=== PATIENT | female | born 1965 | race Caucasian/White ===

== ENCOUNTER 2019-07-24 16:06 | Inpatient (IN) | payer MEDICAID ==
[~2019-07-24] VITALS: Ht 167.6 cm; Wt 60.8 kg
[2019-07-24] MEDS ORDERED: BUPR100SR PO (16:17)
[2019-07-24] MEDS ORDERED: METO25 PO (16:17)
[2019-07-24] MEDS ORDERED: LEVO25TA9 PO (16:17)
[2019-07-24] MEDS ORDERED: LORazepam 2 MG/ML VIAL ONE (16:27)
[2019-07-24] MEDS ORDERED: HALOPERIDOL LACTATE 5 MG/ML VIAL ONE (16:27)
[2019-07-24] MEDS ORDERED: DiphenhydrAMINE HCL 50 MG/ML VIAL ONE (16:27)
[2019-07-24] MEDS ORDERED: DiphenhydrAMINE HCL 50 MG/ML VIAL IM ONE (16:30)
[2019-07-24] MEDS ORDERED: HALOPERIDOL LACTATE 5 MG/ML VIAL IM ONE (16:30)
[2019-07-24] MEDS ORDERED: LORazepam 2 MG/ML VIAL IM ONE (16:30)
[2019-07-24 18:12] LABS: EOSINOPHILS % (AUTO) 0.9 % (1.0-6.0); HEMATOCRIT 42.1 % (36-46); HEMOGLOBIN 13.9 g/dL (12.0-16.0); LYMPHOCYTES # (AUTO) 2.1 K/uL (1.0-4.8); LYMPHOCYTES % (AUTO) 26.7 % (22.0-44.0); MEAN CORPUSCULAR HEMOGLOBIN 29.6 pg (26.0-34.0); MEAN CORPUSCULAR VOLUME 90 fL (80-100); MONOCYTES # (AUTO) 0.4 K/uL (0.1-1.0); MONOCYTES % (AUTO) 5.4 % (2.0-9.0); NEUTROPHILS # (AUTO) 5.3 K/uL (1.8-7.7); PLATELET COUNT (AUTO) 271 K/uL (150-450)
[2019-07-24 18:21] LABS: ANION GAP 8 mmol/L (8-16); CALCIUM, TOTAL 8.6 mg/dL (8.8-10.5); CARBON DIOXIDE 31 mmol/L (22-29); CHLORIDE 105 mmol/L (98-107); CREATININE 1.01 mg/dL (0.60-1.30); GLOMERULAR FILTR. RATE CALC 58 mL/min (>60); GLUCOSE,RANDOM 85 mg/dL (70-110); POTASSIUM 3.9 mmol/L (3.5-5.1); SODIUM SERUM 144 mmol/L (136-145); UREA NITROGEN, BLOOD 13 mg/dL (7-18)
[2019-07-24 18:26] LABS: ALANINE AMINOTRANSFERASE 67 U/L (12-78); ALBUMIN 3.6 g/dL (3.4-5.0); ALKALINE PHOSPHATASE 84 U/L (46-116); ASPARTATE AMINOTRANSFERASE 53 U/L (15-37); BILIRUBIN,TOTAL 0.2 mg/dL (0.1-1.0); TOTAL PROTEIN, SERUM 6.9 g/dL (6.4-8.2)
[2019-07-24 18:41] LABS: LITHIUM < 0.20 mmol/L (0.60-1.20)
[2019-07-24] MEDS ORDERED: HALOPERIDOL 5 MG TABLET PO PRN (20:45)
[2019-07-25] VITALS (8 sets, daily range): BP systolic 128–147; BP diastolic 84–92
[2019-07-25] MEDS: ZOLPIDEM TARTRATE 10 MG TABLET PO PRN ×2 (01:40→21:24)
[2019-07-25] MEDS: LORazepam 2 MG TABLET PO PRN ×2 (01:40→17:58)
[2019-07-25] MEDS ORDERED: INFLUENZA VIRUS VACCINE QVS 2019-20 (3YR+)/PF 60 MCG/0.5 ML SYRINGE IM ONE (03:00)
[2019-07-25] MEDS ORDERED: PNEUMOCOCCAL VACCINE POLYVALENT 0.5 ML VIAL [PPSV23] IM ONE (03:00)
[2019-07-25 08:20] LABS: CHOL/HDL RATIO 3.7 (3.9-5.7)
[2019-07-25] MEDS: BuPROPion HCL 150 MG SR TABLET PO SCH (12:46)
[2019-07-25] MEDS ORDERED: IBUPROFEN 400 MG TABLET PO PRN (15:30)
[2019-07-25] MEDS ORDERED: LOPERAMIDE HCL 2 MG CAPSULE PO PRN (15:30)
[2019-07-25] MEDS ORDERED: MAGNESIUM HYDROXIDE SUSPENSION 30 ML UDCUP PO PRN (15:30)
[2019-07-25] MEDS ORDERED: PETROLATUM,WHITE 28 GM JELLY TP PRN (15:30)
[2019-07-25] MEDS ORDERED: ACETAMINOPHEN 325 MG TABLET PO PRN (15:30)
[2019-07-25] MEDS ORDERED: CloNIDine HCL 0.1 MG TABLET PO PRN (15:30)
[2019-07-25] MEDS ORDERED: MAG HYDROX/AL HYDROX/SIMETH ES 30 ML SUSPENSION UDCUP PO PRN (15:30)
[2019-07-25] MEDS ORDERED: GuaiFENesin/D-METHORPHAN [SUGAR-FREE] 200-20MG/10 ML SYRUP UDCUP PO PRN (15:30)
[2019-07-25] MEDS ORDERED: ONDANSETRON HCL 4 MG TABLET PO PRN (15:30)
[2019-07-25] MEDS ORDERED: ALBUTEROL SULFATE HFA 90 MCG/PUFF 8 GM INHALER IH PRN (15:30)
[2019-07-25] MEDS ORDERED: NICOTINE 14 MG/24 HOUR PATCH TD PRN (15:30)
[2019-07-25] MEDS ORDERED: DOCUSATE SODIUM 100 MG CAPSULE PO PRN (15:30)
[2019-07-26] MEDS: LEVOTHYROXINE SODIUM 25 MCG TABLET PO SCH (06:30)
[2019-07-26 06:49] VITALS: BP 136/87
[2019-07-26 06:51] VITALS: BP 136/87
[2019-07-26 08:12] VITALS: BP 124/92
[2019-07-26] MEDS: AmLODIPine BESYLATE 5 MG TABLET PO SCH (08:16)
[2019-07-26] MEDS: BuPROPion HCL 150 MG SR TABLET PO SCH (08:16)
[2019-07-26] MEDS: LORazepam 2 MG TABLET PO PRN ×2 (08:16→15:46)
[2019-07-26] MEDS: METOPROLOL TARTRATE 25 MG TABLET PO SCH (08:17)
[2019-07-26 09:50] VITALS: BP 124/92
[2019-07-26 16:10] VITALS: BP 134/95
[2019-07-26 16:20] VITALS: BP 134/95
[2019-07-26] MEDS: ZOLPIDEM TARTRATE 10 MG TABLET PO PRN (20:41)
[2019-07-27 02:28] VITALS: BP 131/81
[2019-07-27 02:30] VITALS: BP 131/81
[2019-07-27] MEDS: LEVOTHYROXINE SODIUM 25 MCG TABLET PO SCH (06:32)
[2019-07-27] MEDS: LORazepam 2 MG TABLET PO PRN ×3 (07:07→16:26)
[2019-07-27 08:19] VITALS: BP 124/95
[2019-07-27] MEDS: AmLODIPine BESYLATE 5 MG TABLET PO SCH (08:30)
[2019-07-27] MEDS: METOPROLOL TARTRATE 25 MG TABLET PO SCH (08:30)
[2019-07-27] MEDS: BuPROPion HCL 150 MG SR TABLET PO SCH (08:30)
[2019-07-27] MEDS: OMEGA-3/DHA/EPA/FISH OIL 1,000 MG CAPSULE PO SCH (14:42)
[2019-07-27 16:16] VITALS: BP 129/76
[2019-07-27 16:19] VITALS: BP 129/76
[2019-07-27] MEDS: ZOLPIDEM TARTRATE 10 MG TABLET PO PRN (20:58)
[2019-07-28 06:39] VITALS: BP 114/93
[2019-07-28] MEDS: LEVOTHYROXINE SODIUM 25 MCG TABLET PO SCH (07:06)
[2019-07-28 08:22] VITALS: BP 135/86
[2019-07-28] MEDS: OMEGA-3/DHA/EPA/FISH OIL 1,000 MG CAPSULE PO SCH (08:23)
[2019-07-28] MEDS: BuPROPion HCL 150 MG SR TABLET PO SCH (08:23)
[2019-07-28] MEDS: AmLODIPine BESYLATE 5 MG TABLET PO SCH (08:23)
[2019-07-28] MEDS: METOPROLOL TARTRATE 25 MG TABLET PO SCH (08:23)
[2019-07-28] MEDS: LORazepam 2 MG TABLET PO PRN ×3 (08:23→18:09)
[2019-07-28 17:33] VITALS: BP 127/73
[2019-07-28 17:37] VITALS: BP 127/73
[2019-07-29] MEDS: LORazepam 2 MG TABLET PO PRN ×3 (04:52→16:21)
[2019-07-29 04:55] VITALS: BP 137/80
[2019-07-29 05:54] VITALS: BP 132/89
[2019-07-29] MEDS: LEVOTHYROXINE SODIUM 25 MCG TABLET PO SCH (06:33)
[2019-07-29] MEDS: BuPROPion HCL 150 MG SR TABLET PO SCH (08:06)
[2019-07-29] MEDS: METOPROLOL TARTRATE 25 MG TABLET PO SCH (08:06)
[2019-07-29] MEDS: OMEGA-3/DHA/EPA/FISH OIL 1,000 MG CAPSULE PO SCH (08:07)
[2019-07-29] MEDS: AmLODIPine BESYLATE 5 MG TABLET PO SCH (08:07)
[2019-07-29 08:29] VITALS: BP 135/79
[2019-07-29 10:31] VITALS: BP 135/79
[2019-07-29 16:17] VITALS: BP 135/86
[2019-07-29] MEDS: ZOLPIDEM TARTRATE 10 MG TABLET PO PRN (20:59)
[2019-07-30 04:51] VITALS: BP 142/91
[2019-07-30] MEDS: LEVOTHYROXINE SODIUM 25 MCG TABLET PO SCH (06:36)
[2019-07-30] MEDS: OMEGA-3/DHA/EPA/FISH OIL 1,000 MG CAPSULE PO SCH (08:10)
[2019-07-30] MEDS: BuPROPion HCL 150 MG SR TABLET PO SCH (08:10)
[2019-07-30] MEDS: METOPROLOL TARTRATE 25 MG TABLET PO SCH (08:11)
[2019-07-30] MEDS: AmLODIPine BESYLATE 5 MG TABLET PO SCH (08:11)
[2019-07-30] MEDS: LORazepam 2 MG TABLET PO PRN (08:14)
[2019-07-30 08:32] VITALS: BP 138/83
[2019-07-30] MEDS ORDERED: BUPR150SR PO (09:16)
== END 2019-07-30 16:02 | disposition home or self-care (01) | DRG 751 ==
LOC: EMS 16:08 → B3A 22:30
DX: F33.2 Major depressive disorder, recurrent severe without psychotic features (principal); E03.9 Hypothyroidism, unspecified; E78.5 Hyperlipidemia, unspecified; F10.10 Alcohol abuse, uncomplicated; I10 Essential (primary) hypertension; Z88.8 Allergy status to other drugs, medicaments and biological substances
CPT/HCPCS: 96372; 99291; G0480; J1200; J1630; J2060